=== PATIENT | female | born 1990 | race African-American/Black ===

== ENCOUNTER 2017-04-17 10:25 | Emergency (ER) | payer SELFPAY ==
[~2017-04-17] VITALS: Ht 165.1 cm; Wt 96.0 kg
[2017-04-17 10:27] VITALS: BP 126/80
[2017-04-17] MEDS ORDERED: KETOROLAC 30 MG/1 ML ONE (11:14)
[2017-04-17] MEDS ORDERED: DIAZEPAM 5 MG TABLET ONE (11:14)
[2017-04-17] MEDS ORDERED: DIAZEPAM 5 MG TABLET PO ONE (11:30)
[2017-04-17] MEDS ORDERED: KETOROLAC 60 MG/2 ML IM ONE (12:00)
== END 2017-04-17 14:57 | disposition home or self-care (01) ==
LOC: ED 14:30
DX: M54.16 Radiculopathy, lumbar region (principal); M54.5 Low back pain
CPT/HCPCS: 72110; 81001; 87086; 96372; 99285; J1885